=== PATIENT | male | born 1990 | race Caucasian/White ===

== ENCOUNTER 2019-09-17 07:36 | Emergency (ER) | payer SELFPAY ==
[~2019-09-17] VITALS: Ht 172.7 cm; Wt 75.3 kg
[2019-09-17 07:42] VITALS: BP 172/81
--- NOTE | 2019-09-17 07:46 | NUR ---
PT AMBULATED TO ER BED 11
[2019-09-17] MEDS ORDERED: KETOROLAC 30 MG/ML VIAL IVP ONE (07:50)
[2019-09-17] MEDS ORDERED: ONDANSETRON 4 MG/2 ML VIAL IVP ONE (07:50)
[2019-09-17] MEDS ORDERED: NACL 0.9% 1,000 ML IV ONE (07:50)
--- NOTE | 2019-09-17 08:00 | NUR ---
28 Y/O MALE PRESENTS TO ER WITH C/O SORE THROAT, BODY ACHES, AND ABDOMINAL PAIN X 3 DAYS. C/O OF DIARRHEA, NAUSEA, NASAL PRESSURE X 3 DAYS. DENIES VOMITING, SNEEZING, COUGHING. BILATERAL LLQ TTP. PT STATES HE TOOK IBUPROFEN, AND MUCINEX 09/16/2019. IV 20 GAUGE LAC. WILL CONTINUE TO MONITOR. SIDE RAIL X 1 NO PMH NKDA
--- NOTE | 2019-09-17 09:14 | NUR ---
PT STATES DECREASE IN PAIN, 5/10. DENIES NAUSEA. X 1 SIDE RAIL RAISED, BED LOCKED AND IN LOW POSITION, WILL CONTINUE TO MONITOR
[2019-09-17 09:30] VITALS: BP 172/81
--- NOTE | 2019-09-17 09:31 | NUR ---
Patient discharged with v/s stable. Written and verbal after care instructions given and explained. Patient alert, oriented and verbalized understanding of instructions. Ambulatory with steady gait. All questions addressed prior to discharge. ID band removed. Patient advised to follow up with PMD. Rx of ZOFRAN, MOTRIN given. Patient educated on indication of medication including possible reaction and side effects. Opportunity to ask questions provided and answered.
== END 2019-09-17 09:31 | disposition home or self-care (01) ==
LOC: MED 07:36
DX: R10.9 Unspecified abdominal pain (principal); R19.7 Diarrhea, unspecified; R11.0 Nausea; M79.10 Myalgia, unspecified site; F17.210 Nicotine dependence, cigarettes, uncomplicated
CPT/HCPCS: 96361; 96374; 96375; 99284; J1885; J2405; J7030